=== PATIENT | male | born 1980 | race Caucasian/White ===

== ENCOUNTER 2016-10-19 07:59 | Emergency (ER) | payer MEDICARE ==
[2016-10-19 08:14] VITALS: BP 119/69
[2016-10-19] MEDS ORDERED: oxyCODONE/Acetamin 10/325(NF) TAB PO PRN (08:39)
--- NOTE | 2016-10-19 09:08 | RAD ---
HISTORY: Right shoulder injury COMPARISONS: January 22, 2015 VIEWS: 4, Frontal internal rotation, external rotation, outlet, and axillary views of the right shoulder FINDINGS: BONE DENSITY: Normal. BONES: There is no displaced fracture. JOINTS: There is moderate osteoarthritis of the glenohumeral articulation, progressed from the 2015 examination. ALIGNMENT: There is no dislocation. SOFT TISSUES: Unremarkable. OTHER FINDINGS: None. IMPRESSION: OSTEOARTHRITIS. NO ACUTE OSSEOUS INJURY. IF SYMPTOMS PERSIST, RECOMMEND REPEAT IMAGING.
--- NOTE | 2016-10-19 10:21 | UC ---
Shoulder Pain HPI - HPI Summary HPI Summary: Patient presents with a past medical history of RA, frozen left shoulder joint, on immunosuppresive therapy. He presents today with complaints of left shoulder worsening pain as of yesterday. He was playing with his dog pulling back and forth with a ball and since his felt shoulder has had even worse decreased ROM, and pain in the anterior aspect. He states that he took hydrocodone 10/325 at home that did not alleviate his pain to a tolerable level. He states the pain is worse with movement, and improves at rest. He denies any numbness or tingling. He is care for by Dr. Cordoba orthopedist. - History of Current Complaint Chief Complaint: UCUpperExtremity Stated Complaint: SHOULDER INJURY Time Seen by Provider: 10/19/16 08:31 Hx Obtained From: Patient Onset/Duration: Sudden Onset Timing: Days Severity Initially: Severe Severity Currently: Severe Location Of Pain: Is Discrete @ - left anterior shoulder. Pain Intensity: 10 Pain Scale Used: 0-10 Numeric Character: Sharp, Aching Aggravating Factor(s): Movement, Lifting, Flexion, Extension, Internal Rotation , External Rotation, Abduction Alleviating Factor(s): Nothing Associated Signs And Symptoms: Positive: Negative - no new weakness, numbness or tingling. Patient knows he need additional left shoulder surgery. - Risk Factors Non-Orthopedic Risk Factor: Negative DVT Risk Factors: Negative Septic Arthritis Risk Factor: Negative - Allergies/Home Medications Allergies/Adverse Reactions: Allergies Allergy/AdvReac Type Severity Reaction Status Date / Time Certolizumab Pegol Allergy Hives Verified 10/19/16 08:14 [From Cimzia] Cortisone Allergy Unknown Verified 10/19/16 08:14 Reaction Details Home Medications: Home Medications Abatacept* [Orencia*] 250 mg IV 10/19/16 [History] Hydroxychloroquine TAB* [Plaquenil TAB*] 400 mg PO DAILY 10/19/16 [History Confirmed 10/19/16] PMH/Surg Hx/FS Hx/Imm Hx Previously Healthy: No - Surgical History Surgical History: Yes Surgery Procedure, Year, and Place: bilateral TKR 2009 & 2011-[facility]. adenoidECTOMY- A CHILD. 09/04/2014 [place] [facility] [place] GASTRIC SLEEVE BYPASS, [facility] - Family History Known Family History: Positive: Other - lung cancer. Family History: No FHx of malignant hyperthermia. No FHx of anesthesia reaction - Social History Occupation: Disabled Lives: Alone Alcohol Use: Rare Substance Use Type: None Smoking Status (MU): Never Smoked Tobacco Have You Smoked in the Last Year: No Review of Systems Constitutional: Negative Skin: Negative Eyes: Negative ENT: Negative Respiratory: Negative Cardiovascular: Negative Gastrointestinal: Negative Genitourinary: Negative Musculoskeletal: Decreased ROM, Myalgia - left shoulder pain All Other Systems Reviewed And Are Negative: Yes Physical Exam Triage Information Reviewed: Yes Appearance: Pain Distress Vital Signs: Initial Vital Signs Temp 98.6 F 10/19/16 08:10 Pulse 79 10/19/16 08:10 Resp 18 10/19/16 08:10 BP 119/69 10/19/16 08:10 Pulse Ox 100 10/19/16 08:10 Vital Signs Reviewed: Yes Eye Exam: Normal ENT Exam: Normal Neck exam: Normal Respiratory Exam: Normal Cardiovascular Exam: Normal Abdominal Exam: Normal Musculoskeletal: Positive: Strength Limited @, ROM Limited @, Edema @ - Left shoudler; inspection; no gross deformties noted, no areas of eccymosis, erythema , or induration. Palpation, no warmth, tenderness over the AC tendon. ROM: could not perform any passive or active ROM. Vasc; strong radial and ulnar pulses, capillary refill less than three seconds. Neuro:no deficits to touch distal fingers. Shoulder Course/Dx - Course Course Of Treatment: Patient presents with PMH of RA, with chronic left shoulder pain, and know previous frozen shoulder joint which needs replacement and he is seen by Dr. Cordoba. He was playing with is dog yesterday and now has worse pain. He had no ROM, and is neuro-vasc intact. X-rays revealed known osteoarthritis, and no dislocation or fx noted. He presenst with AC separation and acute on chronic pain. He is RX a short course of percocents and is to follow-up with his orthpedists KEITH. - Differential Dx/Diagnosis Differential Diagnosis/HQI/PQRI: AC Separation, Sprain, Other - Acute on Chronic left shoulder pain/sprain. Provider Diagnoses: Left shoulder sprain. AC seperation grade I. acute on chronic left shoulder pain. osteoarthritis Discharge - Discharge Plan Condition: Stable Disposition: HOME Prescriptions: Oxycodone W/ Acetaminophen [Percocet 7.5-325 mg (NF)] 1 tab PO Q6H PRN #14 tab MDD 4 PRN Reason: left shoulder pain Patient Education Materials: Shoulder Sprain (ED) Referrals: Danny Yao MD [Primary Care Provider] -
== END 2016-10-19 09:20 | disposition home or self-care (01) ==
LOC: UCEAST 07:59
DX: S43.402A Unspecified sprain of left shoulder joint, initial encounter (principal); M25.512 Pain in left shoulder; G89.29 Other chronic pain; M19.012 Primary osteoarthritis, left shoulder; Z96.653 Presence of artificial knee joint, bilateral; Z98.84 Bariatric surgery status; X58.XXXA Exposure to other specified factors, initial encounter
CPT/HCPCS: 99213; G0463

== ENCOUNTER 2018-09-12 10:05 | Emergency (ER) | payer MEDICARE ==
[2018-09-12 10:19] VITALS: BP 144/72
--- NOTE | 2018-09-12 10:28 | UC ---
Lower Extremity/Ankle HPI - HPI Summary HPI Summary: pain left big toe/ toenail x 5 days + swelling, red , erythema, ingrown toenail has been draining yellow green pain is 5 out of 10, worse with pressure, better with warm water soaks - History of Current Complaint Chief Complaint: UCWounds Stated Complaint: LEFT BIG TOE Time Seen by Provider: 09/12/18 10:13 Hx Obtained From: Patient Onset/Duration: Gradual Onset, Lasting Days - 5, Still Present Severity Initially: Moderate Severity Currently: Moderate Pain Intensity: 2 Aggravating Factor(s): Standing, Ambulation Alleviating Factor(s): Elevation Able to Bear Weight: Yes - Allergies/Home Medications Allergies/Adverse Reactions: Allergies Allergy/AdvReac Type Severity Reaction Status Date / Time certolizumab pegol Allergy Intermediate Hives Verified 09/12/18 10:19 [From Cimzia] cortisone Allergy Intermediate Unknown Verified 09/12/18 10:19 Reaction Details Home Medications: Home Medications Tocilizumab* [Actemra*] 150 mg SUBCUT WEEKLY 09/12/18 [History Confirmed ] PMH/Surg Hx/FS Hx/Imm Hx - Additional Past Medical History Additional PMH: RA - Surgical History Surgical History: Yes Surgery Procedure, Year, and Place: bilateral TKR 2009 & 2011-[facility]. adenoidECTOMY- A CHILD. 09/04/2014 [place] [facility] [place]/2014 GASTRIC SLEEVE BYPASS, [facility] - Family History Known Family History: Positive: Other - lung cancer. Family History: No FHx of malignant hyperthermia. No FHx of anesthesia reaction - Social History Alcohol Use: Occasionally Substance Use Type: Other Substance Use Comment - Amount & Last Used: CBD oil Smoking Status (MU): Never Smoked Tobacco Have You Smoked in the Last Year: No Review of Systems All Other Systems Reviewed And Are Negative: Yes Constitutional: Positive: Negative Skin: Positive: Negative Eyes: Positive: Negative ENT: Positive: Negative Is Patient Immunocompromised?: No Physical Exam Triage Information Reviewed: Yes Appearance: Well-Appearing, No Pain Distress, Well-Nourished Vital Signs: Initial Vital Signs Temp 97.9 F 09/12/18 10:15 Pulse 79 09/12/18 10:15 Resp 15 09/12/18 10:15 BP 144/72 09/12/18 10:15 Pulse Ox 99 09/12/18 10:15 Vital Signs Reviewed: Yes Eye Exam: Normal ENT: Positive: Normal ENT inspection, Hearing grossly normal, Pharynx normal Neck exam: Normal Respiratory: Positive: Chest non-tender, Lungs clear, Normal breath sounds Cardiovascular: Positive: RRR, No Murmur, Pulses Normal Skin: Positive: Other - ingrown toenail left great toe , + swelling, erythema, tender to touch Lower Extremity Course/Dx - Differential Dx/Diagnosis Provider Diagnosis: Ingrown toenail with infection Discharge - Sign-Out/Discharge Documenting (check all that apply): Patient Departure All imaging exams completed and their final reports reviewed: No Studies - Discharge Plan Condition: Stable Disposition: HOME Prescriptions: Cephalexin CAP* [Keflex CAP*] 500 mg PO QID #21 cap Patient Education Materials: Ingrown Nail (ED) Referrals: No Primary Care Phys,NOPCP [Primary Care Provider] - 7 Days - Billing Disposition and Condition Condition: STABLE Disposition: Home
== END 2018-09-12 10:32 | disposition home or self-care (01) ==
LOC: UCCORT 10:05
DX: L60.0 Ingrowing nail (principal); L03.032 Cellulitis of left toe; M06.9 Rheumatoid arthritis, unspecified
CPT/HCPCS: 99212; G0463

== ENCOUNTER 2019-05-12 07:31 | Emergency (ER) | payer MEDICARE ==
--- OUTSIDE RECORDS SUMMARY | 2019-05-12 07:42 | XMS REPORT | Continuity of Care Document ---
:1980 External Reference #:[id number] Author Name FEDE Espinoza (transmitted by agent of provider Angelique Benton) Address [address] [place] [id number] Care Team Providers Name Role Phone Danny Yao MD - Internal Care Team Information Belly Roller [phone] Medicine Vance Davidson MD - Orthopaedic Care Team Information Belly Roller Surgery Nick Lyn MD - Rheumatology Care Team Information Belly Roller Nick Joseph MD - Family Care Team Information Belly Roller Medicine Problems Active Problems Provider Date Morbid obesity Katy Manrique M.D. Onset: 08/03/2013 Rheumatoid arthritis Katy Manrique M.D. Onset: 08/03/2013 Obstructive sleep apnea syndrome Katy Manrique M.D. Onset: 08/03/2013 Extreme obesity with alveolar Vincent Conn M.D. Onset: 06/13/2014 hypoventilation Hypoxemia Vincent Conn M.D. Onset: 06/13/2014 Shoulder joint pain Danny Yao M.D. Onset: 02/05/2015 Social History Type Date Description Comments Sex Unknown Tobacco Use Start: Unknown Never Smoked Cigarettes Smoking Status Reviewed: 03/22/19 Never Smoked Cigarettes ETOH Use 08/12/2015 Rarely consumes alcohol ETOH Use once per week Tobacco Use Start: Unknown Patient has never smoked Recreational Drug Use Denies Drug Use Exercise Type/Frequency Does not exercise Exercise Type/Frequency Exercises sporadically Exercise Type/Frequency walks every other day Tattoo/Piercing Tattoo back and each lower extremity/calf Seat Belt/Car Seat always uses seat belt Allergies, Adverse Reactions, Alerts Active Allergies Reaction Severity Comments Date Cimzia Rash, swelling Severe 02/04/2016 NSAIDS Stomach bleeding Moderate 01/11/2019 Inactive Allergies NKDA 06/26/2013 Medications Active Medications SIG Qnty Indications Ordering Date Provider Actemra inject 162mg 4units Z79.899 Nick Lyn, 03/29/2018 162mg/0.9ML subcutaneously every M.D. Soln Prefill week Syringe M05.79 Methotrexate 4 tbs by mouth 48tabs Z79.899 FEDE Espinoza 12/12/2017 2.5mg Tablets every week M05.79 Escitalopram Oxalate Take 1 Tablet By 30tabs F41.9 FEDE Espinoza 10mg Mouth Daily Tablets Shingrix 2 doses 6 month 2units Z23 FEDE Espinoza 07/14/2017 50mcg Suspension Rec apart Folic Acid 1 by mouth every 90tabs Z79.899 Nick Lyn, 11/08/2016 1mg Tablets day M.D. Clonidine HCL Unknown 0.2mg Tablets Immunizations CPT Code Status Date Vaccine Reaction Lot # [id number] Given 01/11/2019 Influ Virus Vaccine, risks and benefits Flu>3yr/ Quadrivalent, Split discussed [id number] Virus, [place] [id number] Given 10/12/2018 Pneumococcal Conjugate [id number] Vaccine 13 Valent For Intramuscular Use 46736 Given 12/12/2017 Influenza Virus Vaccine, [id number] Quadrivalent, Split, Preservative Free 83287 Given 11/08/2016 Influenza Virus Vaccine, [id number] Quadrivalent, Split, Preservative Free [id number] Given 01/19/2016 Influ Virus Vaccine, [id number] Quadrivalent, Split Virus, Im Fluzone not PF Vital Signs Date Vital Result Comment 03/22/2019 10:20am Height 67.5 inches 5'7.50" Weight 264.12 lb Heart Rate 71 /min BP Systolic 131 mmHg BP Diastolic 92 mmHg Body Temperature 98.2 F O2 % BldC Oximetry 97 % BMI (Body Mass Index) 40.8 kg/m2 01/11/2019 8:36am Height 67.5 inches 5'7.50" Weight 260.00 lb Heart Rate 75 /min BP Systolic 122 mmHg BP Diastolic 80 mmHg Respiratory Rate 16 /min O2 % BldC Oximetry 98 % room air BMI (Body Mass Index) 40.1 kg/m2 Results Test Acquired Date Facility Test Result H/L Range Note CBC Auto 03/13/2019 [facility] White Blood 4.7 10^3/uL Normal 3.5-10.[address] [place] [address] [phone] Red Blood Count 5.28 10^6/uL Normal 4.18-5.48 Hemoglobin 16.8 g/dL Normal 14.0-18.0 Hematocrit 48 % Normal 42-52 Mean Corpuscular Volume 90 fL Normal 80-94 Mean Corpuscular Hemoglobin 32 pg High 27-31 Mean Corpuscular HGB Conc 35 g/dL Normal 31-36 Red Cell Distribution Width 13 % Normal 10-15 Platelet Count 153 10^3/uL Normal 150-450 Mean Platelet Volume 9.2 fL Normal 7.4-10.4 Abs Neutrophils 2.6 10^3/uL Normal 1.5-7.7 Abs Lymphocytes 1.2 10^3/uL Normal 1.0-4.8 Abs Monocytes 0.6 10^3/uL Normal 0-0.8 Abs Eosinophils 0.3 10^3/uL Normal 0-0.6 Abs Basophils 0.0 10^3/uL Normal 0-0.2 Abs Nucleated RBC 0.0 10^3/uL Granulocyte % 55.5 % Lymphocyte % 24.5 % Monocyte % 13.5 % Eosinophil % 5.7 % Basophil % 0.8 % Nucleated Red Blood Cells % 0.2 Comp Metabolic 03/13/2019 [facility] Sodium 139 mmol/L Normal 135-[address] [place] [address] [phone] Potassium 4.2 mmol/L Normal 3.5-5.0 Chloride 102 mmol/L Normal 101-111 Co2 Carbon Dioxide 31 mmol/L Normal 22-32 Anion Gap 6 mmol/L Normal 2-11 Glucose 78 mg/dL Normal 70-100 Blood Urea Nitrogen 17 mg/dL Normal 6-24 Creatinine 0.72 mg/dL Normal 0.67-1.17 BUN/Creatinine Ratio 23.6 High 8-20 Calcium 10.0 mg/dL Normal 8.6-10.3 Total Protein 6.9 g/dL Normal 6.4-8.9 Albumin 4.7 g/dL Normal 3.2-5.2 Globulin 2.2 g/dL Normal 2-4 Albumin/Globulin Ratio 2.1 Normal 1-3 Total Bilirubin 0.70 mg/dL Normal 0.2-1.0 Alkaline Phosphatase 46 U/L Normal 34-104 Alt 48 U/L Normal 7-52 Ast 32 U/L Normal 13-39 Egfr Non- 122.8 >60 Egfr 148.6 >60 1 Laboratory test 03/13/2019 [facility] C Reactive 1.64 mg/L Normal <8.[address] [place] [address] [phone] Erythrocyte Sed Rate 0 mm/Hr Normal 0-14 Comp Metabolic 10/10/2018 [facility] Sodium 137 mmol/L Normal 135-[address] [place] [address] [phone] Potassium 4.2 mmol/L Normal 3.5-5.0 Chloride 104 mmol/L Normal 101-111 Co2 Carbon Dioxide 29 mmol/L Normal 22-32 Anion Gap 4 mmol/L Normal 2-11 Glucose 92 mg/dL Normal 70-100 Blood Urea Nitrogen 14 mg/dL Normal 6-24 Creatinine 0.81 mg/dL Normal 0.67-1.17 BUN/Creatinine Ratio 17.3 Normal 8-20 Calcium 9.4 mg/dL Normal 8.6-10.3 Total Protein 6.2 g/dL Low 6.4-8.9 Albumin 4.2 g/dL Normal 3.2-5.2 Globulin 2.0 g/dL Normal 2-4 Albumin/Globulin Ratio 2.1 Normal 1-3 Total Bilirubin 0.70 mg/dL Normal 0.2-1.0 Alkaline Phosphatase 38 U/L Normal 34-104 Alt 36 U/L Normal 7-52 Ast 28 U/L Normal 13-39 Egfr Non- 107.2 >60 Egfr 129.7 >60 2 CBC Auto 10/10/2018 [facility] White Blood 4.5 10^3/uL Normal 3.5-10.[address] [place] [address] [phone] Red Blood Count 4.93 10^6/uL Normal 4.18-5.48 Hemoglobin 15.2 g/dL Normal 14.0-18.0 Hematocrit 45 % Normal 42-52 Mean Corpuscular Volume 91 fL Normal 80-94 Mean Corpuscular Hemoglobin 31 pg Normal 27-31 Mean Corpuscular HGB Conc 34 g/dL Normal 31-36 Red Cell Distribution Width 14 % Normal 10-15 Platelet Count 133 10^3/uL Low 150-450 Mean Platelet Volume 9.2 fL Normal 7.4-10.4 Abs Neutrophils 2.3 10^3/uL Normal 1.5-7.7 Abs Lymphocytes 1.2 10^3/uL Normal 1.0-4.8 Abs Monocytes 0.6 10^3/uL Normal 0-0.8 Abs Eosinophils 0.3 10^3/uL Normal 0-0.6 Abs Basophils 0.0 10^3/uL Normal 0-0.2 Abs Nucleated RBC 0.0 10^3/uL Granulocyte % 52.4 % Lymphocyte % 26.7 % Monocyte % 14.6 % Eosinophil % 5.7 % Basophil % 0.6 % Nucleated Red Blood Cells % 0.0 Laboratory test 10/10/2018 [facility] C Reactive < 1.00 Normal <8.[address] Protein mg/[place] [address] [phone] Erythrocyte Sed Rate 0 mm/Hr Normal 0-14 1 Because ethnic data is not always readily available, this report includes an eGFR for both -Americans and non- Americans. The National Kidney Disease Education Program (NKDEP) does not endorse the use of the MDRD equation for patients that are not between the ages of 18 and 70, are , have extremes of body size, muscle mass, or nutritional status, or are non- or non-. According to the National Kidney Foundation, irrespective of diagnosis, the stage of the disease is based on the level of kidney function: Stage Description GFR(mL/min/1.73 m(2)) 1 Kidney damage with normal or decreased GFR 90 2 Kidney damage with mild decrease in GFR 60-89 3 Moderate decrease in GFR 30-59 4 Severe decrease in GFR 15-29 5 Kidney failure <15 (or dialysis) 2 Because ethnic data is not always readily available, this report includes an eGFR for both -Americans and non- Americans. The National Kidney Disease Education Program (NKDEP) does not endorse the use of the MDRD equation for patients that are not between the ages of 18 and 70, are , have extremes of body size, muscle mass, or nutritional status, or are non- or non-. According to the National Kidney Foundation, irrespective of diagnosis, the stage of the disease is based on the level of kidney function: Stage Description GFR(mL/min/1.73 m(2)) 1 Kidney damage with normal or decreased GFR 90 2 Kidney damage with mild decrease in GFR 60-89 3 Moderate decrease in GFR 30-59 4 Severe decrease in GFR 15-29 5 Kidney failure <15 (or dialysis) Procedures Description No Information Available Medical Devices Description No Information Available Encounters Type Date Location Provider Dx Diagnosis Office Visit 01/11/2019 [facility] Nick F33.1 Major depressive 8:30a MD Opal disorder, recurrent, moderate F41.9 Anxiety disorder, unspecified M05.79 Rheu arthritis w rheu factor mult site w/o org/sys involv Z23 Encounter for immunization Office Visit 10/12/2018 10:30a Rheumatology Alyx Landeros M05.79 Rheu [facility] w rheu factor Ccmob mult site w/o org/sys involv Z79.899 Other long-term (current) drug therapy Z23 Encounter for immunization Assessments Date Code Description Provider 03/22/2019 M05.79 Rheumatoid arthritis with rheumatoid factor FEDE Espinoza of multiple site 03/22/2019 G89.4 Chronic pain syndrome FEDE Espinoza 03/22/2019 Z79.899 Other exterminator helper termite (current) drug therapy FEDE Espinoza 03/22/2019 M25.562 Pain in left knee FEDE Espinoza 01/11/2019 F33.1 Major depressive disorder, recurrent, Nick Joseph MD moderate 01/11/2019 F41.9 Anxiety disorder, unspecified Nick Joseph MD 01/11/2019 M05.79 Rheumatoid arthritis with rheumatoid factor Nick Joseph MD of multiple sites without organ or systems involvement 01/11/2019 Z23 Encounter for immunization Nick Joseph MD 10/12/2018 M05.79 Rheumatoid arthritis with rheumatoid factor FEDE Espinoza of multiple site 10/12/2018 Z79.899 Other exterminator helper termite (current) drug therapy FEDE Espinoza 10/12/2018 Z23 Encounter for immunization FEDE Espinoza Plan of Treatment Future Appointment(s):06/25/2019 9:30 am - FEDE Espinoza at [facility]04/17/2019 9:00 am - Nick Joseph MD at [facility]03/22/2019 - ABIDA EspinozaPM05.79 Rheumatoid arthritis with rheumatoid factor of multiple siteComments:Your arthritis seems to be clinically and symptomatically well controlled at this time.Your inflammatory markers are within normal range.Your latest laboratory tests indicate no detectable impairment of kidney and liver functions.Will stop hydroxychloroquine because of diarrhea.Please, continue with Actemra and Mtx.Continue with regular blood tests. You will need to have a blood test done about a week prior to your next appointment. You have a standing lab order on file. Refills will be sent to your pharmacy.Please call the office if you develop any sign or symptoms of infection or acute change inyour health.Follow up:3 month labs ghrqwB34.4 Chronic pain laapwlqiF86.899 Other exterminator helper termite (current ) drug wafbnrqH02.562 Pain in left kneeComments:You may do strengthening for your hips and feet but avoid any stress on the knee joint until evaluation has bee completed Functional Status Description No Information Available Mental Status Description No Information Available Referrals Description No Information Available
[2019-05-12 08:49] LABS: Influenza A Molecular Negative (Negative); Influenza B Molecular Negative (Negative)
[2019-05-12 08:53] VITALS: BP 136/89
--- NOTE | 2019-05-12 09:29 | UC ---
Respiratory Complaint HPI - HPI Summary HPI Summary: cough x 3 days cough is dry , worse with deep breathing , better with rest , nasal congestion , pnd , sore throat, no fever, no chills , no body aches has a friend who is in Quarantine for COVID19 - History of Current Complaint Chief Complaint: UCRespiratory Stated Complaint: COUGH, FEVER Time Seen by Provider: 05/12/19 07:42 Hx Obtained From: Patient Onset/Duration: Gradual Onset, Lasting Days - 3, Still Present Timing: Constant Severity Initially: Moderate Severity Currently: Moderate Pain Intensity: 2 Pain Scale Used: 0-10 Numeric Character: Cough: Nonproductive Aggravating Factors: Exertion, Deep Breaths Associated Signs And Symptoms: Positive: URI, Nasal Congestion. Negative: Dyspnea, Fever, Pleuritic Chest Pain, Wheezing - Allergies/Home Medications Allergies/Adverse Reactions: Allergies Allergy/AdvReac Type Severity Reaction Status Date / Time certolizumab pegol Allergy Intermediate Hives Verified 05/12/19 08:12 [From Cimzia] cortisone Allergy Intermediate Unknown Verified 05/12/19 08:12 Reaction Details Home Medications: Home Medications Folic Acid TAB* [Folvite TAB*] 1 mg PO QAM 08/22/13 [History Confirmed 05/12/19] Methotrexate TAB* 10 tab PO TU 08/22/13 [History Confirmed 05/12/19] Escitalopram Oxalate [Lexapro 10 mg] 10 mg PO DAILY 03/28/18 [History Confirmed 05/12/19] Tocilizumab* [Actemra*] 150 mg SUBCUT WEEKLY 09/12/18 [History Confirmed ] celeCOXIB CAP* [CeleBREX CAP*] 200 mg PO DAILY 05/12/19 [History Confirmed 05/11] PMH/Surg Hx/FS Hx/Imm Hx Previously Healthy: Yes - Surgical History Surgical History: Yes Surgery Procedure, Year, and Place: bilateral TKR 2009 & 2011-[facility]. adenoidECTOMY- A CHILD. 09/04/2014 RIGHT TYMPANOMAST[place]ECTOMY, [facility] [place]. 09/30/2014 GASTRIC SLEEVE BYPASS, [facility]. bilateral TKA - Family History Known Family History: Positive: Other - lung cancer. Negative: Diabetes Family History: No FHx of malignant hyperthermia. No FHx of anesthesia reaction - Social History Alcohol Use: Occasionally Substance Use Type: Other Substance Use Comment - Amount & Last Used: CBD oil Smoking Status (MU): Never Smoked Tobacco Have You Smoked in the Last Year: No Review of Systems All Other Systems Reviewed And Are Negative: Yes Is Patient Immunocompromised?: No Physical Exam Triage Information Reviewed: Yes Appearance: Well-Appearing, No Pain Distress, Well-Nourished Vital Signs: Initial Vital Signs Temp 98.3 F 05/12/19 08:14 Pulse 74 05/12/19 08:14 Resp 18 05/12/19 08:14 BP 136/89 05/12/19 08:14 Pulse Ox 100 05/12/19 08:14 Vital Signs Reviewed: Yes Eye Exam: Normal Eyes: Positive: Conjunctiva Clear ENT: Positive: Normal ENT inspection, Hearing grossly normal, Pharynx normal, TMs normal Neck: Positive: Supple, Nontender, No Lymphadenopathy Respiratory: Positive: Chest non-tender, Lungs clear, Normal breath sounds Cardiovascular: Positive: RRR, No Murmur, Pulses Normal Abdominal Exam: Normal Respiratory Course/Dx - Differential Dx/Diagnosis Provider Diagnosis: URI (upper respiratory infection) Discharge ED - Sign-Out/Discharge Documenting (check all that apply): Patient Departure All imaging exams completed and their final reports reviewed: No Studies - Discharge Plan Condition: Stable Disposition: HOME Patient Education Materials: Upper Respiratory Infection (ED) Forms: COVID-19 Tested & Isolation Referrals: No Primary Care Phys,NOPCP [Primary Care Provider] - If Needed - Billing Disposition and Condition Condition: STABLE Disposition: Home
--- NOTE | 2019-05-15 08:33 | UC ---
- Progress Note Progress Note: please call the pt. with the lab results COVID19 undetected may discontinue self quarantine , cont. with social distancing please call the pt. with the lab results Course/Dx - Diagnoses Provider Diagnoses: URI (upper respiratory infection) Discharge ED - Sign-Out/Discharge Documenting (check all that apply): Patient Departure All imaging exams completed and their final reports reviewed: No Studies - Discharge Plan Condition: Stable Disposition: HOME Patient Education Materials: Upper Respiratory Infection (ED) Forms: COVID-19 Tested & Isolation Referrals: No Primary Care Phys,NOPCP [Primary Care Provider] - If Needed - Billing Disposition and Condition Condition: STABLE Disposition: Home
== END 2019-05-12 09:21 | disposition home or self-care (01) ==
LOC: UCCORT 07:31
DX: J06.9 Acute upper respiratory infection, unspecified (principal); Z20.828 Contact with and (suspected) exposure to other viral communicable diseases; Z96.653 Presence of artificial knee joint, bilateral; Z88.8 Allergy status to other drugs, medicaments and biological substances
CPT/HCPCS: 87651; 99211; G0463; U0002